=== PATIENT | male | born 1945 | race Caucasian/White ===

== ENCOUNTER 2020-05-03 06:51 | Day surgery (SDC) | payer MEDICARE ==
[~2020-05-03] VITALS: Ht 180.3 cm; Wt 108.9 kg
[~2020-05-03 06:51] MED LIST: ASPIRIN EC81 MG PO; ATENOLOL100 MG PO; ATORVASTATI80 MG/TAB PO; LEVITRA10 MG PO; MULTI VIT PO; PLAVIX75 MG PO; TAMSULOSIN HCL0.4 MG PO; VITAMIN B COMPL1 TAB PO
[2020-05-03 09:20] VITALS: BP 143/78
== END 2020-05-03 09:22 | disposition home or self-care (01) ==
LOC: ENDO 06:51
PROVIDERS: ATTEND Surgery
PROC: 0DBG8ZX Excision of Left Large Intestine, Via Natural or Artificial Opening Endoscopic, Diagnostic (ICD-10-PCS; principal; 2020-05-03)
DX: Z12.11 Encounter for screening for malignant neoplasm of colon (principal); D12.4 Benign neoplasm of descending colon; K57.30 Diverticulosis of large intestine without perforation or abscess without bleeding; I10 Essential (primary) hypertension; Z95.1 Presence of aortocoronary bypass graft; Z95.5 Presence of coronary angioplasty implant and graft; Z80.0 Family history of malignant neoplasm of digestive organs; Z20.828 Contact with and (suspected) exposure to other viral communicable diseases

== ENCOUNTER 2022-07-03 16:34 | Emergency (ER) | payer MEDICARE ==
[~2022-07-03] VITALS: Ht 182.9 cm; Wt 104.3 kg
[2022-07-03 16:58] VITALS: BP 127/67
[2022-07-03 17:01] VITALS: BP 130/58
[2022-07-03 17:43] LABS: HEMATOCRIT 36.2 % (39.0-50.0)
[2022-07-03] MEDS ORDERED: XARELTO STARTER1 TAB PO (18:02)
[2022-07-03 18:51] VITALS: BP 127/67
== END 2022-07-03 19:15 | disposition home or self-care (01) ==
LOC: ED 16:34
PROVIDERS: Family Medicine
DX: I82.412 Acute embolism and thrombosis of left femoral vein (principal); I10 Essential (primary) hypertension; Z95.1 Presence of aortocoronary bypass graft; Z96.652 Presence of left artificial knee joint; M79.662 Pain in left lower leg